=== PATIENT | male | born 1975 | race Caucasian/White ===

== ENCOUNTER 2017-05-12 18:21 | Emergency (ER) | payer MEDICAID ==
[~2017-05-12] VITALS: Ht 180.3 cm; Wt 71.0 kg
[~2017-05-12 18:21] MED LIST: NO HOME MEDS
[2017-05-12 18:38] VITALS: BP 107/67
== END 2017-05-12 20:05 | disposition left against medical advice (07) ==
LOC: ER 18:22
DX: Z53.21 Procedure and treatment not carried out due to patient leaving prior to being seen by health care provider (principal)